=== PATIENT | male | born 1975 | race Caucasian/White ===

== ENCOUNTER 2020-12-16 11:39 | Emergency (ER) | payer BC ==
[~2020-12-16] VITALS: Ht 180.3 cm; Wt 97.1 kg
[2020-12-16 11:50] VITALS: BP 139/78
[2020-12-16] MEDS ORDERED: ALPR0.5T PO ×2 (11:50→11:51)
--- NOTE | 2020-12-16 11:55 | NUR ---
Patient discharged to home in stable condition. Written and verbal after care instructions given. Patient verbalizes understanding of instruction.
== END 2020-12-16 11:55 | disposition home or self-care (01) ==
LOC: ER 11:48
DX: F41.9 Anxiety disorder, unspecified (principal); Z79.899 Other long term (current) drug therapy